=== PATIENT | male | born 1945 | race Caucasian/White ===

== ENCOUNTER 2018-07-27 20:13 | Emergency (ER) | payer MEDICARE, SELFPAY ==
[2018-07-27 20:28] VITALS: BP 180/104; PULSE 91; RESP 15; TEMP 36.9; O2SAT 97; BMI 31.9
--- NOTE | 2018-07-27 20:32 | ED.SKABFB ---
HPI - Skin/Abscess/Foreign Bdy General Chief complaint: Skin/Abscess/Foreign Body Stated complaint: PIECE OF CHICKEN STUCK IN CHEST Time Seen by Provider: 07/27/18 20:29 Source: patient Mode of arrival: ambulatory Limitations: no limitations History of Present Illness HPI narrative: 72-year-old nonsmoker presents with his in the chief complaint of piece of chicken stuck in his throat for the past 2 days. He denies any chance of any hard substances such chicken bone. He denies any chest pain, fever or shortness of breath. He states he has had esophageal foreign bodies in the past and has even required a specialist to perform an EGD. he has not been able to eat or drink for the past 2 days, as anything he attempts to consume newly immediately comes back up in the form of vomit. Onset (ago): day(s) Tetanus up to date: yes Severity: moderate Related Data Allergies Allergy/AdvReac Type Severity Reaction Status Date / Time No Known Drug Allergies Allergy Verified 07/27/18 20:28 Review of Systems Review of Systems All systems reviewed & are unremarkable except as noted in HPI and below Constitutional Denies chills, Denies fever(s), Denies lethargy and Denies weakness Eyes Denies change in vision, Denies eye discharge, Denies irritation and Denies loss of vision ENT Ears, Nose, Mouth, and Throat: Denies change in voice, Reports dysphagia, Denies neck pain and Denies sore throat Cardiovascular Denies chest pain, Denies irregular heart rhythm, Denies lightheadedness, Denies palpitations, Denies dyspnea, Denies dyspnea on exertion and Denies orthopnea Respiratory Denies cough, Denies dyspnea, Denies dyspnea on exertion and Denies wheezing Gastrointestinal Gastrointestinal: Denies abdominal pain, Denies change in bowel habits, Reports dysphagia, Denies diarrhea, Denies nausea and Reports vomiting Genitourinary Denies hematuria, Denies flank pain, Denies urinary incontinence and Denies urinary urgency Musculoskeletal Denies neck pain Integumentary/Breasts Denies pruritus, Denies erythema, Denies rash and Denies wounds Neurologic Denies confusion, Denies loss of vision and Denies weakness Psychiatric Denies anxiety, Denies confusion, Denies depression, Denies homicidal ideation and Denies suicidal ideation Endocrine Denies palpitations Hematologic/Lymphatic Denies easy bruising Allergic/Immunologic Denies wheezing PFSH Social History Smoking Status: Never smoker Exam Narrative Exam Narrative: GEN: AOx3 and in mild distress EYES: Pupils are equal, round, and reactive to light and accommodation. Extraoccular muscles are intact bilaterally. There is no subconjunctival hemorrhage or exudate. CHEST: Lungs are clear to auscultation bilaterally and free of wheezes, rales, or rhonchi. Heart rate is regular rhythm, there are no murmurs, clicks, rubs, or gallops. There is no chest wall tenderness. ABD: Abdomen is soft and nontender. There is no guarding or rebound. Bowel sounds are normal in all 4 quadrants. There is no mass or organomegaly. EXT: Full painless ROM of all extremities with no loss of sensation or strength. SKIN: Warm, pink, and dry. No erythema or rash Initial Vital Signs Initial Vital Signs: Vital Signs Temperature 98.4 F 07/27/18 20:28 Pulse Rate 91 H 07/27/18 20:28 Respiratory Rate 15 07/27/18 20:28 Blood Pressure 180/104 H 07/27/18 20:28 Pulse Oximetry 97 07/27/18 20:28 Course Orders Ordered: Discontinued Medications Glucagon (Glucagen) 1 mg IV NOW ONE Stop: 07/27/18 20:33 Last Admin: 07/27/18 20:35 Dose: 1 mg Reevaluation(s) Reevaluation #1: Patient had IV placed and was given glucagon 1 mg IV and lukewarm adán consumed within the next 60 sec. He was able to drink the whole can without vomiting or even nausea. 15-20 minutes later the patient was able to drink water without difficulty. He denied any ongoing symptoms and states that up until his visit to the emergency department he could not even keep a sip of water down Vital Signs - 8 hr 07/27/18 20:28 07/27/18 21:24 Temperature 98.4 F Pulse Rate 91 H 91 H Respiratory Rate 15 15 Blood Pressure 180/104 H 168/83 H Pulse Oximetry 97 97 Discharge Plan Departure Patient Disposition: Home Clinical Impression: Foreign body alimentary tract Discharge Date/Time: 07/27/18 21:25 Interventions: ED Discharge Assessment Last Done: 07/27/18 21:24 Instructions: DI for Removal of Foreign Body From Esophagus Activity Restrictions/Additional Instructions: *You have been diagnosed with [ esophageal foreign body resolved ] *What to do: *Take medications as directed *Follow up with your primary care provider in 2-3 days, call for an appointment. Let them know you were seen in the Emergency Department and that we ask that you be seen in follow up *Return to ER if you should have any new, worsening or concerning symptoms Referrals: Aman Charles MD [Physician] - Edward Abreu MD [Non-Staff] -
[2018-07-27] MEDS: GLUCAGON,HUMAN RECOMBINANT 1 MG/ML VIAL IV (20:35)
--- NOTE | 2018-07-27 21:10 | PC.NURSE ---
provided glucagon iv as ordered, 30 seconds later provide room temp cola. pt vomited 2 small amounts then continued to drink without vomiting, cola stayed down. pt stated he still had some pain in the area.
[2018-07-27 21:24] VITALS: BP 168/83; PULSE 91; RESP 15; O2SAT 97
== END 2018-07-27 21:25 | disposition home or self-care (01) ==
PROVIDERS: Emergency Provider Emergency Medicine
DX: T18.9XXA Foreign body of alimentary tract, part unspecified, initial encounter (principal)
CPT/HCPCS: 36591; 96374; 99282; 99284; J1610

== ENCOUNTER 2025-04-10 16:28 | Emergency (ER) | payer OTHER, MEDICARE, SELFPAY ==
[2025-04-10] VITALS (38 sets, daily range): BP systolic 147–203; BP diastolic 65–113; PULSE 101–121; RESP 16–33; TEMP 36.7; O2SAT 2–98; BMI 25.4
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
[2025-04-10] MEDS: SODIUM CHLORIDE 0.9% 1,000 ML 1000 ML IV ×2 (16:34→16:36)
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
[2025-04-10 16:38] LABS: Base Excess VBG 1.0 mmol/L (0-4); HCO3 VBG 27 mmol/L (24-28); Oxygen Saturation VBG 49 % (70-75); PCO2 VBG 47.4 mmHg (45-50); PO2 VBG 28 mmHg (35-45); Total CO2 VBG 26 mmol/L (24-29); pH VBG 7.37 (7.33-7.43)
[2025-04-10] MEDS: ALBUTEROL/IPRATROPIUM 3 ML AMPUL INH ×3 (16:47→17:45)
[2025-04-10] MEDS: TET,DIPH,PERTUSS(ACELL),VAC/PF 0.5 ML SYRINGE IM (16:57)
--- NOTE | 2025-04-10 17:08 | EKG_ITS ---
[address] [address] Test Date: 2025-04-10 Pat Name: YOLANDA SIMON Department: Room: Gender: Male Parts Clerk: LATRELL : 1945 Requested By: Order Number: [id number] Reading MD: Jason Abebe MD Measurements Intervals [place] Rate: 108 P: 2 SC: 212 QRS: -40 QRSD: 144 T: 108 QT: 382 QTc: 511 Interpretive Statements Undetermined rhythm Left axis deviation Left bundle branch block NO PRIOR TRACING Electronically Signed On 04-11-2025 7:46:28 PDT by Jason Abebe MD
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
--- NOTE | 2025-04-10 18:37 | PC.NURSE ---
pt states breathing is improved, pt still has cough, states can take a deeper breath. Pt on 2 LPM O2 at this time.
[2025-04-10 19:16] LABS: Add Manual Diff / Slide Review NO; Hematocrit 46.5 % (41-53); Hemoglobin 16.4 g/dL (13.5-17.5); Lymphocytes Absolute Auto 1200 /uL (1100-4500); Mean Corpuscular HGB Conc 35.2 % (30-36); Mean Corpuscular Hemoglobin 28.8 PG (26-34); Mean Corpuscular Volume 81.9 fL (80-100); Platelet Count 147 X10^3/uL (150-400)
[2025-04-10 19:20] LABS: Alanine Aminotransferase 24 IU/L (<50); Albumin 4.5 g/dL (3.5-5.0); Albumin Globulin Ratio 1.3 (1.0-2.8); Alkaline Phosphatase 48 U/L (38-126); Blood Urea Nitrogen 25 mg/dL (9-20); Calcium 9.2 mg/dL (8.4-10.2); Carbon Dioxide 29 mmol/L (22-32); Chloride 104 mmol/L (98-107); Creatine Kinase 39 U/L (55-170); Estimated Glomerular Filt Rate > 60 mL/min (>60); Globulin 3.5 g/dL (1.7-4.1); Glucose 162 mg/dL (70-99); HEMOLYSIS 43 (0-50); Potassium 4.6 mmol/L (3.4-5.1); Sodium 139 mmol/L (137-145); Total Protein 8.0 g/dL (6.3-8.2)
[2025-04-10 19:32] LABS: Troponin I 0.015 ng/mL (0.01-0.034)
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
[2025-04-10] MEDS: ALBUTEROL HFA PREPACK 1 BOX MISC (21:27)
[2025-04-10] MEDS: BACITRACIN OINT 0.9 GM PCKT 1 APPLIC TOP (21:39)
== END 2025-04-10 22:30 | disposition left against medical advice (07) ==
PROVIDERS: Family Medicine; Emergency Provider Emergency Medicine
DX: T59.811A Toxic effect of smoke, accidental (unintentional), initial encounter (principal); T20.05XA Burn of unspecified degree of scalp [any part], initial encounter; T25.029A Burn of unspecified degree of unspecified foot, initial encounter; X08.8XXA Exposure to other specified smoke, fire and flames, initial encounter; Z23 Encounter for immunization; I44.7 Left bundle-branch block, unspecified
CPT/HCPCS: 70450; 71045; 71275; 80053; 82550; 82805; 84484; 85025; 90471; 93005; 93010; 94640; 96374; 99285; 90715; J2919; Q9967